=== PATIENT | male | born 1960 | race Two or more races ===

== ENCOUNTER 2025-04-27 15:11 | Inpatient (IN) | payer OTHER, MEDICAID ==
[~2025-04-27] VITALS: Ht 193 cm; Wt 115.0 kg
[2025-04-27] MEDS: SODIUM CHLORIDE 0.9% 1,000 ML IV ONE (17:07)
--- NOTE | 2025-04-27 17:39 | ED.PDOC ---
History of present illness HPI Comments Joel Newman JR is a 65-year-old male, with a past medical history of DM2, peripheral neuropathy, kidney stones, HTN, osteoarthritis, toes amputation and, hyperlipidemia. The patient came with history of 2 days of having elevated home glucose readings > 350. The patient reports that he has run of his diabetes medications (Insulin and metformin), for the last 3 months is has not take any medication due to a recent change of insurance. Today, the home glucose readings continue elevating, and he started presenting generalized myalgias, weakness and bilateral leg muscles cramps, this prompted his visit to the ED. Chief Complaint: Hyperglycemia Time Seen by MD: 15:21 Primary Care Provider: ALLEN History of present illness: Nurses Notes, Medications, Allergies Allergies: Coded Allergies: NO KNOWN ALLERGIES (Unverified , 04/27/25) Information Source: Patient, Spouse Mode of Arrival: Wheelchair Timing: Days, Months Duration: Since onset Past Medical History PAST MEDICAL HISTORY: DM, HTN, Kidney Stones Surgical History: Appendectomy Surgical History (Other): Left foot toe amputation. Family History Family History: Unknown Social History Smoker: Quit Greater Than 1 Year Alcohol: Denies ETOH Use Drugs: Denies Drug Use Lives In: Home Constitutional: reports: fatigue, malaise, weakness; denies: chills, diaphoresis, fever, sweats, others EENTM: denies: blurred vision, double vision, ear bleeding, ear discharge, ear drainage, ear pain, ear ringing, eye pain, eye redness, hearing loss, mouth pain, mouth swelling, nasal discharge, nose bleeding, nose congestion, nose pain, photophobia, tearing, throat pain, throat swelling, voice changes, others Respiratory: denies: cough, hemoptysis, orthopnea, SOB at rest, shortness of breath, SOB with excertion, stridor, wheezing, others Cardiovascular: denies: chest pain, dizzy spells, diaphoresis, Dyspnea on exertion, edema, irregular heart beat, left arm pain, lightheadedness, palpitations, PND, syncope, others Gastrointestinal: denies: abdomen distended, abdominal pain, blood streaked bowels, constipated, diarrhea, dysphagia, difficulty swallowing, hematemesis, melena, nausea, poor appetite, poor fluid intake, rectal bleeding, rectal pain, vomiting, others Genitourinary: denies: burning, dysuria, flank pain, frequency, hematuria, incontinence, penile discharge, penile sore, pain, testicle pain, testicle swelling, urgency, others Neurological: denies: dizziness, fainting, headache, left sided numbness, left sided weakness, numbness, paresthesia, pre-existing deficit, right sided numbness, right sided weakness, seizure, speech problems, tingling, tremors, weakness, others Musculoskeletal: reports: others (Generalized myalgias and muscle cramps); denies: back pain, gout, joint pain, joint swelling, muscle pain, muscle stiffness, neck pain Integumetry: denies: bruises, change in color, change in hair/nails, dryness, laceration, lesions, lumps, rash, wounds, others Allergic/Immunocompromised: denies: Difficulty Healing, Frequent Infections, Hives, Itching, others Hematologic/Lymphatic: denies: anemia, blood clots, easy bleeding, easy bruising, swollen glands, others Endocrine: denies: excessive hunger, excessive sweating, excessive thirst, excessive urination, flushing, intolerance to cold, intolerance to heat, unexplained weight gain, unexplained weight loss, others Psychiatric: denies: anxiety, bipolar disorder, depression, hopeless, panic disorder, schizophrenia, sleepless, suicidal, others Physical Exam General Appearance: Mild Distress HEENT: Normal ENT Inspection, Pharynx Normal, TMs Normal Neck: Full Range of Motion, Non-Tender, Normal, Normal Inspection Respiratory: Chest Non-Tender, Lungs Clear, No Accessory Muscle Use, No Respiratory Distress, Normal Breath Sounds Cardiovascular: No Edema, No JVD, No Murmur, No Gallop, Normal Peripheral Pulses, Regular Rate/Rhythm Breast Exam: Deferred Gastrointestinal: No Organomegaly, Non Tender, No Pulsatile Mass, Normal Bowel Sounds, Soft Genitalia: Deferred Pelvic: Deferred Rectal: Deferred Extremities: Other (Left toe amputation. ) Neurologic: Abnormal Gait (Due to generalized weakness), Alert (Alert, oriented x3) Cerebellar Function: Normal Reflexes: Normal Skin: Dry, Normal Color, Warm Lymphatic: No Adenopathy Was a procedure done? Was a procedure done?: No Differential Diagnosis (DM) Differential Diagnosis: DKA, Hyperglycemia Other Differential Diagnosis Uncontrolled hyperglycemia. X-Ray, Labs, Meds, VS Vital Signs Date Time Temp Pulse Resp B/P (MAP) Pulse Ox O2 Delivery O2 Flow Rate FiO2 04/27/25 17:25 83 18 145/113 (124) 99 04/27/25 15:14 98.6 111 22 146/70 99 98.6 Lab Test 04/27/25 17:05 Range/Units White Blood Count 18.3 H 4.4-10.8 10^3/uL Red Blood Count 5.36 4.5-5.90 10^6/uL Hemoglobin 16.1 13.5-17.5 g/dL Hematocrit 45.8 41.0-53.0 % Mean Corpuscular Volume 85.5 80.0-100.0 fL Mean Corpuscular Hemoglobin 30.0 28.0-32.0 pg Mean Corpuscular Hemoglobin Concent 35.1 32.0-36.0 g/dL Red Cell Distribution Width 12.6 11.8-14.3 % Platelet Count 201 140-450 10^3/uL Mean Platelet Volume 10.5 6.9-10.8 fL Neutrophils (%) (Auto) 37.0-80.0 % Lymphocytes (%) (Auto) 10.0-50.0 % Monocytes (%) (Auto) 0.0-12.0 % Basophils (%) (Auto) 0.0-2.0 % Neutrophils # (Auto) 1.6-8.6 10 ^3/uL Lymphocytes # (Auto) 0.4-5.4 10 ^3/uL Monocytes # (Auto) 0-1.3 10 ^3/uL Differential Total Cells Counted 100.0 100 Neutrophils % (Manual) 91 H 37.0-80.0 Band Neutrophils % (Manual) 0 Lymphocytes % (Manual) 6 L 10.0-50.0 Monocytes % (Manual) 3 0-12 Eosinophils % (Manual) 0 0-7 Basophils % (Manual) 0 0.0-2.0 Metamyelocytes % (manual) 0 Myelocytes % (Manual) 0 Promyelocytes % (Manual) 0 Blast Cells % (Manual) 0 Reactive Lymphocytes 0 Platelet Estimate Adequate Sodium Level 131 L 136-145 mmol/L Potassium Level 3.8 3.5-5.1 mmol/L Chloride Level 96 L 98-107 mmol/L Carbon Dioxide Level 24 20-31 mmol/L Anion Gap 11 5-15 Blood Urea Nitrogen 12 9-23 mg/dL Creatinine 0.99 0.700-1.30 mg/dL Glomerular Filtration Rate Calc 83 >90 mL/min BUN/Creatinine Ratio 12.1 10.0-20.0 Serum Glucose 272 H 74-106 mg/dL Calcium Level 9.4 8.7-10.4 mg/dL Total Bilirubin 0.9 0.2-1.0 mg/dL Aspartate Amino Transferase (AST) 28 13-40 U/L Alanine Aminotransferase (ALT) 22 7-40 U/L Alkaline Phosphatase 108 46-116 U/L Total Protein 7.9 5.7-8.2 g/dL Albumin 4.4 3.2-4.8 g/dL Current Medications Medications (Trade) Dose Ordered Sig/Avery Route Start Time Stop Time Status Last Admin Sodium Chloride 1,000 ml @ 1,000 mls/hr Q1H ONCE IV 04/27/25 16:15 04/27/25 17:14 DC 04/27/25 17:07 X-Ray, Labs, Meds, VS Comment The patient was re-evaluated. BP continue elevated. Labs showed: WBC 18.3, Glucose 272mg/dl Patient will be admitted for further assessment and management. Time of 1ST Reevaluation: 18:00 Reevaluation 1ST: Unchanged Patient Education/Counseling: Diagnosis, Treatment, Prognosis, Need For Follow Up Family Education/Counseling: Diagnosis, Treatment, Prognosis, Need For Follow Up SEPSIS Sepsis Screen Date sepsis recognized/suspect: Apr 27, 2025 Time Sepsis recognized/suspect: 1514 Recent Procedure: No On Antibiotic Therapy: No Respiratory Rate >20: No Heart Rate >90: Yes Temp<36 C (96.8 F) or >38.3 C: No SBP <90 or MAP <65 mmHG: No New Acute Mental Status Change: No Is the patient on CPAP, BIPAP,: No Physician Orders Urinalysis (04/27/25 16:06) Accucheck (04/27/25 16:06) Vital Signs Date Time Temp Pulse Resp B/P (MAP) Pulse Ox O2 Delivery O2 Flow Rate FiO2 04/27/25 17:25 83 18 145/113 (124) 99 04/27/25 15:14 98.6 111 22 146/70 99 98.6 Laboratory Tests Test 04/27/25 17:05 White Blood Count 18.3 10^3/uL (4.4-10.8) H Medications Medications Dose Ordered Sig/Avery Route Start Time Stop Time Status Last Admin Dose Admin Sodium Chloride 1,000 ml @ 1,000 mls/hr Q1H ONCE IV 04/27/25 16:15 04/27/25 17:14 DC 04/27/25 17:07 Departure 1 Departure Time of Disposition: 18:37 Impression: Primary Impression: Uncontrolled diabetes mellitus Disposition: ADMITTED INPATIENT Admit to: Med Surg Condition: Fair Comments Goals of care discussed with the patient > 35 min. Discussed plan of care with Dr. Sanchez Code status: Full code PCP: Anastacio Rodriguez Plan discussed with: Patient and his spouse, the patient agrees with the admission plan. Critical Care Note Critical Care Time?: No Stability Stability form required: No Heart Score Heart Score: Heart Score Response (Comments) Value History N/A 0 EKG N/A 0 Age N/A 0 Risk Factors N/A 0 Troponin N/A 0 Total 0 RISSA FLOREZ RESIDENT Apr 27, 2025 17:38
[2025-04-27 17:45] LABS: Hematocrit 45.8 % (41.0-53.0); Hemoglobin 16.1 g/dL (13.5-17.5); Mean Corpuscular Hemoglobin 30.0 pg (28.0-32.0); Mean Corpuscular Volume 85.5 fL (80.0-100.0)
[2025-04-27 17:58] LABS: Alanine Aminotransferase 22 U/L (7-40); Albumin 4.4 g/dL (3.2-4.8); Alkaline Phosphatase 108 U/L (46-116); Anion Gap 11 (5-15); BUN/Creatinine Ratio 12.1 (10.0-20.0); Blood Urea Nitrogen 12 mg/dL (9-23); Calcium 9.4 mg/dL (8.7-10.4); Carbon Dioxide 24 mmol/L (20-31); Potassium 3.8 mmol/L (3.5-5.1); Total Protein 7.9 g/dL (5.7-8.2)
[2025-04-27 17:59] LABS: Bilirubin, Total 0.9 mg/dL (0.2-1.0)
[2025-04-27 18:00] LABS: Chloride 96 mmol/L (98-107); Glucose 272 mg/dL (74-106); Sodium 131 mmol/L (136-145)
[2025-04-27 18:09] LABS: Total Cells Counted 100.0 (100)
[2025-04-27 20:25] LABS: Urine Protein, UAD Negative (Negative)
[2025-04-27] MEDS ORDERED: DEXTROSE (50%) 50ML SYRG IV PRN (21:00)
[2025-04-27] MEDS ORDERED: ONDANSETRON HCL 4 MG/2 ML VIAL IV PRN (21:00)
[2025-04-27] MEDS ORDERED: ACETAMINOPHEN 325 MG TAB PO PRN (21:00)
[2025-04-27] MEDS: ONDANSETRON HCL 4 MG/2 ML VIAL IV ONE (21:30)
[2025-04-27] MEDS: HYDROcodone-ACET 5/325MG TAB PO ONE (21:31)
[2025-04-27 21:47] VITALS: PULSE 89; RESP 20; O2SAT 96
[2025-04-27 23:33] VITALS: BP 112/86; PULSE 83; RESP 16; TEMP 97.6; O2SAT 99
--- NOTE | 2025-04-27 23:38 | DVHHP2 ---
History of Present Illness Reason for Visit: Hyperglycemia History of Present Illness 65-year-old male presents for evaluation of hyperglycemia. Patient reports a two day history of elevated blood sugars in the 300s. He reports his baseline blood sugars are no greater than 150. He reports being compliant with his medications. Denies fever or chills. Does report a nonproductive cough occasionally over the past three days. Denies chest pain. No abdominal pain or nausea. Past Medical History Diabetes mellitus and hypertension Past Surgical History Appendectomy, toe amputation Family History Noncontributory Smoke: Quit ALCOHOL: none Drugs: None Lives: with Family Review of Systems Review of Systems Review of systems are currently negative otherwise addressed in HPI. Allergies: Coded Allergies: NO KNOWN ALLERGIES (Unverified , 04/27/25) Medications Current Medications Medications Dose Ordered Sig/Avery Route Start Time Stop Time Status Last Admin Dose Admin Ceftriaxone Sodium 50 ml @ 100 mls/hr DAILY@09 IV 04/28/25 09:00 Diagnostic Test (Pha) 1 strip Q6HR 04/28/25 00:00 Insulin Human Regular Q6HR SC 04/28/25 00:00 Dextrose 50 ml UD PRN IV 04/27/25 21:00 Ondansetron HCl 4 mg Q4HP PRN IV 04/27/25 21:00 Acetaminophen 650 mg Q6HP PRN PO 04/27/25 21:00 Exam Vital Signs Vital Signs Date Time Temp Pulse Resp B/P (MAP) Pulse Ox O2 Delivery O2 Flow Rate FiO2 04/27/25 21:47 89 20 96 Room Air* 0 21 04/27/25 20:19 98.8 113/59 (77) 98.8 Exam Gen: 65-year-old male in mild Skin: Warm, dry, normal color and texture, no rash. HEENT: Normocephalic atraumatic, mucous membranes moist and pink. Neck: Cervical and supraclavicular nodes normal without enlargement, trachea is midline, thyroid gland is normal without masses. Pulmonary: Clear to auscultation and percussion bilaterally. Cardiac: Regular rate and rhythm. No murmur Abdomen: Soft, nontender, nondistended, bowel sounds present all 4 quadrants, no guarding, no rigidity, no organomegaly. Extremities: No cyanosis, clubbing, no edema Neuro: Cranial nerves II through XII grossly intact, normal affect and speech, no focal motor deficits. Labs/Xrays Labs Test 04/27/25 21:10 04/27/25 19:50 04/27/25 17:08 04/27/25 17:05 Range/Units Troponin I High Sensitivity < 3 L </=54 ng/L Urine Color Light-yellow Yellow Urine Clarity Clear Clear Urine pH 7.0 5.0-9.0 Urine Specific [place] 1.007 1.001-1.035 Urine Protein Negative Negative Urine Ketones Trace Negative Urine Blood Negative Negative /uL Urine Nitrite Negative Negative Urine Bilirubin Negative Negative Urine Urobilinogen Normal Negative mg/dL Urine Leukocyte Esterase Negative Negative /uL Urine RBC None seen 0 - 3 /hpf Urine Microscopic WBC 0-3 /HPF Urine Squamous Epithelial Cells None seen <5 /hpf Urine Bacteria None seen None Seen /hpf Urine Glucose 2+ H Normal mg/dL Hemoglobin A1c 12.1 H <5.7 % A1C White Blood Count 18.3 H 4.4-10.8 10^3/uL Red Blood Count 5.36 4.5-5.90 10^6/uL Hemoglobin 16.1 13.5-17.5 g/dL Hematocrit 45.8 41.0-53.0 % Mean Corpuscular Volume 85.5 80.0-100.0 fL Mean Corpuscular Hemoglobin 30.0 28.0-32.0 pg Mean Corpuscular Hemoglobin Concent 35.1 32.0-36.0 g/dL Red Cell Distribution Width 12.6 11.8-14.3 % Platelet Count 201 140-450 10^3/uL Mean Platelet Volume 10.5 6.9-10.8 fL Neutrophils (%) (Auto) 37.0-80.0 % Lymphocytes (%) (Auto) 10.0-50.0 % Monocytes (%) (Auto) 0.0-12.0 % Basophils (%) (Auto) 0.0-2.0 % Neutrophils # (Auto) 1.6-8.6 10 ^3/uL Lymphocytes # (Auto) 0.4-5.4 10 ^3/uL Monocytes # (Auto) 0-1.3 10 ^3/uL Differential Total Cells Counted 100.0 100 Neutrophils % (Manual) 91 H 37.0-80.0 Band Neutrophils % (Manual) 0 Lymphocytes % (Manual) 6 L 10.0-50.0 Monocytes % (Manual) 3 0-12 Eosinophils % (Manual) 0 0-7 Basophils % (Manual) 0 0.0-2.0 Metamyelocytes % (manual) 0 Myelocytes % (Manual) 0 Promyelocytes % (Manual) 0 Blast Cells % (Manual) 0 Reactive Lymphocytes 0 Platelet Estimate Adequate Sodium Level 131 L 136-145 mmol/L Potassium Level 3.8 3.5-5.1 mmol/L Chloride Level 96 L 98-107 mmol/L Carbon Dioxide Level 24 20-31 mmol/L Anion Gap 11 5-15 Blood Urea Nitrogen 12 9-23 mg/dL Creatinine 0.99 0.700-1.30 mg/dL Glomerular Filtration Rate Calc 83 >90 mL/min BUN/Creatinine Ratio 12.1 10.0-20.0 Serum Glucose 272 H 74-106 mg/dL Calcium Level 9.4 8.7-10.4 mg/dL Total Bilirubin 0.9 0.2-1.0 mg/dL Aspartate Amino Transferase (AST) 28 13-40 U/L Alanine Aminotransferase (ALT) 22 7-40 U/L Alkaline Phosphatase 108 46-116 U/L Total Protein 7.9 5.7-8.2 g/dL Albumin 4.4 3.2-4.8 g/dL SEPSIS Sepsis Screen Date sepsis recognized/suspect: Apr 27, 2025 Time Sepsis recognized/suspect: 1514 Recent Procedure: No On Antibiotic Therapy: No Respiratory Rate >20: No Heart Rate >90: Yes Temp<36 C (96.8 F) or >38.3 C: No SBP <90 or MAP <65 mmHG: No New Acute Mental Status Change: No Is the patient on CPAP, BIPAP,: No Physician Orders Accucheck (04/27/25 16:06) Electrocardigram (04/27/25 19:05) Ceftriaxone 1gm/50ml (Rocephin) (04/28/25 09:00) Blood Culture (04/27/25 20:48) Chest Xray 1 View (04/27/25 20:48) Basic Metabolic Panel (04/28/25 04:00) Glucose Blood (Accu-Chek Comfort Curve T (04/28/25 00:00) Insulin R (Human) (Insulin R) (04/28/25 00:00) Dextrose 50% Syringe (04/27/25 21:00) Ondansetron Hcl (Zofran) (04/27/25 21:00) Complete Blood Count (04/28/25 04:00) Cardiac Diet-2gna,Lofat,Lochol (04/28/25 Breakfast) Condition: Stable (04/27/25 20:48) Acetaminophen Tablet (Tylenol Tablet) (04/27/25 21:00) Bedrest With Bathroom Privileg (04/27/25 20:48) Admit (04/27/25 21:23) Vital Signs Date Time Temp Pulse Resp B/P (MAP) Pulse Ox O2 Delivery O2 Flow Rate FiO2 04/27/25 21:47 89 20 96 Room Air* 0 21 04/27/25 20:41 81 04/27/25 20:19 98.8 90 19 113/59 (77) 100 98.8 04/27/25 18:45 89 04/27/25 17:25 83 18 145/113 (124) 99 Laboratory Tests Test 04/27/25 17:05 White Blood Count 18.3 10^3/uL (4.4-10.8) H Medications Medications Dose Ordered Sig/Avery Route Start Time Stop Time Status Last Admin Dose Admin Acetaminophen/ Hydrocodone Bitart 1 tab ONCE ONCE PO 04/27/25 21:15 04/27/25 21:16 DC 04/27/25 21:31 1 TAB Ceftriaxone Sodium 50 ml @ 100 mls/hr ONCE ONCE IV 04/27/25 19:30 04/27/25 19:59 DC 04/27/25 20:30 100 MLS/HR Ondansetron HCl 4 mg ONCE ONCE IV 04/27/25 21:15 04/27/25 21:16 DC 04/27/25 21:30 4 MG Sodium Chloride 1,000 ml @ 1,000 mls/hr Q1H ONCE IV 04/27/25 16:15 04/27/25 17:14 DC 04/27/25 17:07 1,000 MLS/HR Assessment/Plan Assessment/Plan Assessment Uncontrolled diabetes mellitus Leukocytosis Hypertension Plan Ad[place] the patient [place] [facility] [place] Q.4 hour Accu-Cheks with mild coverage Chest x-ray pending Blood cultures pending Start Rocephin Continue treatment per orders. Plan discussed with: Patient My Orders Orders - OMER REIS Procedure Category Date Status Time Ceftriaxone 1gm/50ml PHA 04/28/25 In Process (Rocephin) 09:00 Blood Culture RANDY 04/27/25 In Process 20:48 Chest Xray 1 View XY 04/27/25 Taken 20:48 Basic Metabolic Panel LAB 04/28/25 Verified 04:00 Glucose Blood PHA 04/28/25 In Process (Accu-Chek Comfort 00:00 Insulin R (Human) PHA 04/28/25 In Process (Insulin R) 00:00 Dextrose 50% Syringe PHA 04/27/25 In Process 21:00 Ondansetron Hcl PHA 04/27/25 In Process (Zofran) 21:00 Complete Blood Count LAB 04/28/25 Verified 04:00 Cardiac DIET 04/28/25 Transmitted Diet-2gna,Lofat,Lochol Breakfast Condition: Stable SHREI 04/27/25 In Process 20:48 Acetaminophen Tablet PHA 04/27/25 In Process (Tylenol Tablet) 21:00 Bedrest With Bathroom SHERI 04/27/25 In Process Privileg 20:48 Admit ADMIT 04/27/25 Transmitted 21:23 Date of Service: Apr 27, 2025 Billing Provider: OMER REIS Common Visit Codes: [id number] INP/OBS CARE (MOD) OMER REIS Apr 27, 2025 23:38
[2025-04-28] VITALS (8 sets, daily range): BP systolic 107–121; BP diastolic 61–86; PULSE 60–87; RESP 16–20; TEMP 97.6–99.5; O2SAT 93–99
[2025-04-28] MEDS: HYDROcodone-ACET 5/325MG TAB PO PRN (00:53)
[2025-04-28 06:29] LABS: Hematocrit 41.0 % (41.0-53.0); Hemoglobin 14.5 g/dL (13.5-17.5); Mean Corpuscular Hemoglobin 29.7 pg (28.0-32.0); Mean Corpuscular Volume 84.3 fL (80.0-100.0); Nucleated Red Blood Cells % 0.0 %
[2025-04-28 06:37] LABS: Potassium 3.7 mmol/L (3.5-5.1)
[2025-04-28 06:38] LABS: Anion Gap 11 (5-15); Calcium 8.8 mg/dL (8.7-10.4); Carbon Dioxide 25 mmol/L (20-31)
[2025-04-28 06:43] LABS: BUN/Creatinine Ratio 13.5 (10.0-20.0); Blood Urea Nitrogen 13 mg/dL (9-23)
[2025-04-28 06:50] LABS: Chloride 97 mmol/L (98-107); Glucose 249 mg/dL (74-106); Sodium 133 mmol/L (136-145)
[2025-04-28] MEDS: BENAZEPRIL HCL 10 MG TAB PO SCH (09:34)
--- NOTE | 2025-04-28 12:53 | DVHPN2 ---
Reviewed: Care Plan, H&P, Labs, Medications, Previous Orders, Radiology Changes from previous H/P or p: No Changes Objective Vitals Vital Signs Date Time Temp Pulse Resp B/P (MAP) Pulse Ox O2 Delivery O2 Flow Rate FiO2 04/28/25 09:34 107/71 04/28/25 09:00 99.5 87 20 93 99.5 04/28/25 08:00 Room Air* 0 21 Intake/Output Intake and Output 04/28/25 07:00 Intake Total 1300 ml Balance 1300 ml Intake Oral 300 ml IV Total 1000 ml # Bowel Movements 2 Medications Current Medications Medications Dose Ordered Sig/Avery Route Start Time Stop Time Status Last Admin Dose Admin Ceftriaxone Sodium 50 ml @ 100 mls/hr DAILY@09 IV 04/28/25 09:00 04/28/25 09:37 100 MLS/HR Diagnostic Test (Pha) 1 strip Q6HR 04/28/25 00:00 04/28/25 11:19 1 STRIP Insulin Human Regular Q6HR SC 04/28/25 00:00 04/28/25 11:22 6 UNITS Dextrose 50 ml UD PRN IV 04/27/25 21:00 Ondansetron HCl 4 mg Q4HP PRN IV 04/27/25 21:00 Acetaminophen 650 mg Q6HP PRN PO 04/27/25 21:00 Atorvastatin Calcium 20 mg HS PO 04/28/25 22:00 Benazepril HCl 10 mg DAILY PO 04/28/25 10:00 04/28/25 09:34 10 MG Acetaminophen/ Hydrocodone Bitart 1 tab Q4HPRN PRN PO 04/28/25 00:30 04/28/25 00:53 1 TAB Laboratory Results Laboratory Tests 04/28/25 05:14 Chemistry Test 04/27/25 17:05 04/28/25 05:14 Albumin 4.4 g/dL (3.2-4.8) Calcium Level 9.4 mg/dL (8.7-10.4) 8.8 mg/dL (8.7-10.4) Total Protein 7.9 g/dL (5.7-8.2) LFT Test 04/27/25 17:05 Alanine Aminotransferase (ALT) 22 U/L (7-40) Alkaline Phosphatase 108 U/L (46-116) Aspartate Amino Transferase (AST) 28 U/L (13-40) Total Bilirubin 0.9 mg/dL (0.2-1.0) HgA1c, TSH Test 04/27/25 17:08 Hemoglobin A1c 12.1 % A1C (<5.7) H Urinalysis Test 04/27/25 19:50 Urine Color Light-yellow (Yellow) Urine Clarity Clear (Clear) Urine pH 7.0 (5.0-9.0) Urine Specific [place] 1.007 (1.001-1.035) Urine Protein Negative (Negative) Urine Ketones Trace (Negative) Urine Blood Negative /uL (Negative) Urine Nitrite Negative (Negative) Urine Bilirubin Negative (Negative) Urine Urobilinogen Normal mg/dL (Negative) Urine Leukocyte Esterase Negative /uL (Negative) Urine RBC None seen /hpf (0 - 3) Urine Microscopic WBC /HPF (0-3) Urine Squamous Epithelial Cells None seen /hpf (<5) Urine Bacteria None seen /hpf (None Seen) Urine Glucose 2+ mg/dL (Normal) H Labs and/or images reviewed: Labs reviewed by me, Image(s) reviewed by me Assessment/Plan Assessment/Plan Uncontrolled diabetes blood sugars in the range of 300 A1c 12.1: Insulin aggressive sliding scale Leukocytosis 00532 unknown etiology: Rocephin, chest x-ray negative urinalysis negative for infection Hypertension Moderate malnutrition Time spent 45 minutes Plan discussed with: Patient Date of Service: Apr 28, 2025 Billing Provider: KATHY YUAN MD Common Visit Codes: [id number] INP/OBS CARE(HIGH) KATHY YUAN MD Apr 28, 2025 12:53
[2025-04-28] MEDS ORDERED: DEXTROSE (50%) 50ML SYRG IV PRN (13:15)
[2025-04-28] MEDS ORDERED: OMEP-434 PO (15:44)
[2025-04-28] MEDS ORDERED: LOVA20TA4 PO (15:44)
[2025-04-28] MEDS ORDERED: METF-370 PO (15:44)
[2025-04-28] MEDS ORDERED: CYCL-839 PO (15:44)
[2025-04-28] MEDS ORDERED: PIO30T PO (15:44)
[2025-04-28] MEDS ORDERED: FLUT1INH30 IN (15:44)
[2025-04-28] MEDS: ACCU-CHEK COMFORT CURVE STRIP VI SCH ×2 (17:18)
[2025-04-28] MEDS: InsuLIN REG 1unit/0.01ml Soln (100units/ml) SC SCH ×2 (17:19)
[2025-04-28] MEDS: ATORVASTATIN 20 MG TAB PO SCH (21:46)
[2025-04-29] VITALS (7 sets, daily range): BP systolic 111–129; BP diastolic 65–78; PULSE 70–85; RESP 18–20; TEMP 97.4–99.4; O2SAT 94–99
--- NOTE | 2025-04-29 10:01 | DVHPN2 ---
Reviewed: Care Plan, H&P, Labs, Medications, Previous Orders, Radiology Changes from previous H/P or p: No Changes Objective Vitals Vital Signs Date Time Temp Pulse Resp B/P (MAP) Pulse Ox O2 Delivery O2 Flow Rate FiO2 04/29/25 09:26 129/69 04/29/25 05:00 97.4 77 20 99 97.4 04/28/25 20:00 Room Air* 0 21 Intake/Output Intake and Output 04/29/25 07:00 Intake Total 3853 ml Output Total 1000 ml Balance 2853 ml Intake Oral 3803 ml IV Total 50 ml Output Urine Total 1000 ml # Voids 5 # Bowel Movements 2 Medications Current Medications Medications Dose Ordered Sig/Avery Route Start Time Stop Time Status Last Admin Dose Admin Ceftriaxone Sodium 50 ml @ 100 mls/hr DAILY@09 IV 04/28/25 09:00 04/29/25 08:23 100 MLS/HR Ondansetron HCl 4 mg Q4HP PRN IV 04/27/25 21:00 Acetaminophen 650 mg Q6HP PRN PO 04/27/25 21:00 Atorvastatin Calcium 20 mg HS PO 04/28/25 22:00 04/28/25 21:46 20 MG Benazepril HCl 10 mg DAILY PO 04/28/25 10:00 04/29/25 09:26 10 MG Acetaminophen/ Hydrocodone Bitart 1 tab Q4HPRN PRN PO 04/28/25 00:30 04/28/25 00:53 1 TAB Diagnostic Test (Pha) 1 strip Q6HR 04/28/25 18:00 04/29/25 05:32 1 STRIP Insulin Human Regular Q6HR SC 04/28/25 18:00 04/29/25 05:32 8 UNITS Dextrose 50 ml UD PRN IV 04/28/25 13:15 Laboratory Results Laboratory Tests 04/28/25 05:14 Urinalysis Test 04/27/25 19:50 Urine Color Light-yellow (Yellow) Urine Clarity Clear (Clear) Urine pH 7.0 (5.0-9.0) Urine Specific [place] 1.007 (1.001-1.035) Urine Protein Negative (Negative) Urine Ketones Trace (Negative) Urine Blood Negative /uL (Negative) Urine Nitrite Negative (Negative) Urine Bilirubin Negative (Negative) Urine Urobilinogen Normal mg/dL (Negative) Urine Leukocyte Esterase Negative /uL (Negative) Urine RBC None seen /hpf (0 - 3) Urine Microscopic WBC /HPF (0-3) Urine Squamous Epithelial Cells None seen /hpf (<5) Urine Bacteria None seen /hpf (None Seen) Urine Glucose 2+ mg/dL (Normal) H Microbiology Microbiology Date/Time Source Procedure Growth Status 04/27/25 21:10 Blood Blood Culture - Preliminary NO GROWTH AFTER 24 HOURS OF INCUBATION. Resulted Labs and/or images reviewed: Labs reviewed by me, Image(s) reviewed by me Assessment/Plan Assessment/Plan Uncontrolled diabetes blood sugars in the range of 300 A1c 12.1: Insulin aggressive sliding scale Leukocytosis 13429 unknown etiology: Rocephin, chest x-ray negative urinalysis negative for infection Hypertension Moderate malnutrition Time spent 45 minutes Patient lives with his Plan discussed with: Patient My Orders Orders - KATHY YUAN MD Procedure Category Date Status Time Glucose Blood PHA 04/28/25 In Process (Accu-Chek Comfort 18:00 Insulin R (Human) PHA 04/28/25 In Process (Insulin R) 18:00 Dextrose 50% Syringe PHA 04/28/25 In Process 13:15 Communication Order ORDERS 04/28/25 Transmitted 13:12 Date of Service: Apr 29, 2025 Billing Provider: KATHY YUAN MD Common Visit Codes: [id number] INP/OBS CARE(HIGH) KATHY YUAN MD Apr 29, 2025 10:01
--- NOTE | 2025-04-29 11:30 | DVH ---
CHEST RADIOGRAPH Indication: sob Technique: Single frontal view of the chest was obtained COMPARISON: None FINDINGS: Lines and Tubes: None Lungs: Congestion Pleura: No effusion.No pneumothorax. Cardiomediastinal contours: Unremarkable Bones: Unremarkable IMPRESSION: Pulmonary vascular congestion.
--- NOTE | 2025-04-29 11:31 | DVH ---
CT pelvis contrast INDICATION: Sepsis, leukocytosis TECHNIQUE: Serial axial images were performed through the abdomen and pelvis and then reformatted in the sagittal and coronal plane. All CT scans at this medical facility are performed using dose modula tion techniques as appropriate to a performed exam including the following: Automated exposure contro l was utilized; adjustment of the MA and/or KvP according to patient size; and use of iterative recon struction technique. FINDINGS: Liver and spleen are normal in size without focal mass. No renal masses, stones or hydronep hrosis. No masses or enlargement of the adrenal glands or pancreas. No biliary dilatation. No gallsto van. No distention of bowel loops to suggest mechanical obstruction of bowel. The appendix is normal in appearance. No free fluid. Within the pelvis, bladder is smooth walled without stones. No abnormal masses or fluid collections. IMPRESSION: 1. Study limited by lack of IV contrast. There is no obvious active in infectious or inflammatory pro cess involving abdomen or pelvis Computed Tomographic Radiation Dosimetry Report: Total CTDI vol = 22.8mGy Total DLP = 3.92mGy-cm Low dose protocols were performed.
[2025-04-29] MEDS ORDERED: HYDROcodone-ACET 5/325MG TAB PO SCH (12:00)
[2025-04-30 01:00] VITALS: BP 129/72; PULSE 70; RESP 18; TEMP 98; O2SAT 99
[2025-04-30 05:00] VITALS: BP 128/80; PULSE 72; RESP 18; TEMP 97.9; O2SAT 96
[2025-04-30 07:08] LABS: Alanine Aminotransferase 18 U/L (7-40); Alkaline Phosphatase 85 U/L (46-116); Anion Gap 8 (5-15); BUN/Creatinine Ratio 13.8 (10.0-20.0); Blood Urea Nitrogen 12 mg/dL (9-23); Calcium 9.3 mg/dL (8.7-10.4); Carbon Dioxide 27 mmol/L (20-31); Chloride 101 mmol/L (98-107); Potassium 4.1 mmol/L (3.5-5.1); Sodium 136 mmol/L (136-145); Total Protein 7.3 g/dL (5.7-8.2)
[2025-04-30 07:09] LABS: Albumin 4.0 g/dL (3.2-4.8); Glucose 165 mg/dL (74-106)
[2025-04-30 07:10] LABS: Bilirubin, Total 0.8 mg/dL (0.2-1.0)
[2025-04-30 07:29] LABS: Hematocrit 42.5 % (41.0-53.0); Hemoglobin 15.5 g/dL (13.5-17.5); Mean Corpuscular Hemoglobin 30.2 pg (28.0-32.0); Mean Corpuscular Volume 83.0 fL (80.0-100.0); Nucleated Red Blood Cells % 0.2 %
[2025-04-30 09:00] VITALS: BP 115/67; PULSE 64; RESP 17; TEMP 97.6; O2SAT 96
--- NOTE | 2025-04-30 12:46 | DVHPN2 ---
Reviewed: Care Plan, H&P, Labs, Medications, Previous Orders, Radiology Changes from previous H/P or p: No Changes Objective Vitals Vital Signs Date Time Temp Pulse Resp B/P (MAP) Pulse Ox O2 Delivery O2 Flow Rate FiO2 04/30/25 09:08 115/67 04/30/25 09:00 97.6 64 17 96 97.6 04/30/25 08:00 Room Air* 0 21 Intake/Output Intake and Output 04/30/25 07:00 Intake Total 1665 ml Output Total 601 ml Balance 1064 ml Intake Oral 1615 ml IV Total 50 ml Output Urine Total 601 ml Medications Current Medications Medications Dose Ordered Sig/Avery Route Start Time Stop Time Status Last Admin Dose Admin Ceftriaxone Sodium 50 ml @ 100 mls/hr DAILY@09 IV 04/28/25 09:00 04/30/25 09:07 100 MLS/HR Ondansetron HCl 4 mg Q4HP PRN IV 04/27/25 21:00 Acetaminophen 650 mg Q6HP PRN PO 04/27/25 21:00 Atorvastatin Calcium 20 mg HS PO 04/28/25 22:00 04/29/25 21:34 20 MG Benazepril HCl 10 mg DAILY PO 04/28/25 10:00 04/30/25 09:08 10 MG Diagnostic Test (Pha) 1 strip Q6HR 04/28/25 18:00 04/30/25 12:14 1 STRIP Insulin Human Regular Q6HR SC 04/28/25 18:00 04/30/25 12:14 8 UNITS Dextrose 50 ml UD PRN IV 04/28/25 13:15 Acetaminophen/ Hydrocodone Bitart 1 tab Q6HPRN PRN PO 04/29/25 18:00 Laboratory Results Laboratory Tests 04/30/25 06:20 Chemistry Test 04/30/25 06:20 Albumin 4.0 g/dL (3.2-4.8) Calcium Level 9.3 mg/dL (8.7-10.4) Total Protein 7.3 g/dL (5.7-8.2) LFT Test 04/30/25 06:20 Alanine Aminotransferase (ALT) 18 U/L (7-40) Alkaline Phosphatase 85 U/L (46-116) Aspartate Amino Transferase (AST) 41 U/L (13-40) H Total Bilirubin 0.8 mg/dL (0.2-1.0) Urinalysis Test 04/27/25 19:50 Urine Color Light-yellow (Yellow) Urine Clarity Clear (Clear) Urine pH 7.0 (5.0-9.0) Urine Specific [place] 1.007 (1.001-1.035) Urine Protein Negative (Negative) Urine Ketones Trace (Negative) Urine Blood Negative /uL (Negative) Urine Nitrite Negative (Negative) Urine Bilirubin Negative (Negative) Urine Urobilinogen Normal mg/dL (Negative) Urine Leukocyte Esterase Negative /uL (Negative) Urine RBC None seen /hpf (0 - 3) Urine Microscopic WBC /HPF (0-3) Urine Squamous Epithelial Cells None seen /hpf (<5) Urine Bacteria None seen /hpf (None Seen) Urine Glucose 2+ mg/dL (Normal) H Microbiology Microbiology Date/Time Source Procedure Growth Status 04/27/25 21:10 Blood Blood Culture - Preliminary NO GROWTH AFTER 48 HOURS OF INCUBATION. Resulted Labs and/or images reviewed: Labs reviewed by me, Image(s) reviewed by me Assessment/Plan Assessment/Plan Uncontrolled diabetes blood sugars in the range of 300 A1c 12.1: Insulin aggressive sliding scale Leukocytosis [id number] unknown etiology: Rocephin, chest x-ray negative urinalysis negative for infection Hypertension Moderate malnutrition Time spent 45 minutes Patient lives with his Plan discussed with: Patient Date of Service: Apr 30, 2025 Billing Provider: KATHY YUAN MD Common Visit Codes: [id number] INP/OBS CARE(HIGH) KATHY YUAN MD Apr 30, 2025 12:46
[2025-04-30 13:00] VITALS: BP 130/72; PULSE 68; RESP 19; TEMP 98.1; O2SAT 99
[2025-04-30] MEDS ORDERED: BENA10TA90 PO (13:20)
[2025-04-30] MEDS ORDERED: INSU1INJ3 SC (13:20)
[2025-04-30 17:00] VITALS: BP 127/75; PULSE 70; RESP 19; TEMP 98.1; O2SAT 97
[2025-04-30] MEDS: HYDROcodone-ACET 5/325MG TAB PO PRN (19:43)
[2025-04-30 21:00] VITALS: BP 121/70; PULSE 80; RESP 18; TEMP 98.4; O2SAT 100
[2025-05-01 01:00] VITALS: BP 126/74; PULSE 84; RESP 18; TEMP 98; O2SAT 96
[2025-05-01 05:00] VITALS: BP 130/79; PULSE 82; RESP 18; TEMP 98.2; O2SAT 96
--- NOTE | 2025-05-01 06:14 | ECG ---
[facility] Test Date: 2025-04-27 Test Time: 18:42:57 Pat Name: DAVE PACKER Department: Room: 0297 Gender: M [employer]: NAHOMI : 1960 Requested By: RISSA FLOREZ Order Number: [id number] Reading MD: Measurements Intervals [place] Rate: 89 P: -68 MS: 116 QRS: 93 QRSD: 93 T: 66 QT: 370 QTc: 451 Interpretive Statements Sinus or ectopic atrial rhythm Borderline short MS interval Right axis deviation Please click the below link to view image of tracing.
--- NOTE | 2025-05-01 12:05 | DVHPN2 ---
Reviewed: Care Plan, H&P, Labs, Medications, Previous Orders, Radiology Changes from previous H/P or p: No Changes Objective Vitals Vital Signs Date Time Temp Pulse Resp B/P (MAP) Pulse Ox O2 Delivery O2 Flow Rate FiO2 05/01/25 09:05 136/77 05/01/25 08:00 Room Air* 0 21 05/01/25 05:00 98.2 82 18 96 98.2 Intake/Output Intake and Output 05/01/25 07:00 Intake Total 950 ml Balance 950 ml Intake Oral 900 ml IV Total 50 ml # Voids 5 # Bowel Movements 1 Medications Current Medications Medications Dose Ordered Sig/Avery Route Start Time Stop Time Status Last Admin Dose Admin Ceftriaxone Sodium 50 ml @ 100 mls/hr DAILY@09 IV 04/28/25 09:00 05/01/25 08:12 100 MLS/HR Ondansetron HCl 4 mg Q4HP PRN IV 04/27/25 21:00 Acetaminophen 650 mg Q6HP PRN PO 04/27/25 21:00 Atorvastatin Calcium 20 mg HS PO 04/28/25 22:00 04/30/25 22:15 20 MG Benazepril HCl 10 mg DAILY PO 04/28/25 10:00 05/01/25 09:05 10 MG Diagnostic Test (Pha) 1 strip Q6HR 04/28/25 18:00 05/01/25 11:30 1 STRIP Insulin Human Regular Q6HR SC 04/28/25 18:00 05/01/25 11:36 8 UNITS Dextrose 50 ml UD PRN IV 04/28/25 13:15 Acetaminophen/ Hydrocodone Bitart 1 tab Q6HPRN PRN PO 04/29/25 18:00 04/30/25 19:43 1 TAB Laboratory Results Laboratory Tests 04/30/25 06:20 Urinalysis Test 04/27/25 19:50 Urine Color Light-yellow (Yellow) Urine Clarity Clear (Clear) Urine pH 7.0 (5.0-9.0) Urine Specific [place] 1.007 (1.001-1.035) Urine Protein Negative (Negative) Urine Ketones Trace (Negative) Urine Blood Negative /uL (Negative) Urine Nitrite Negative (Negative) Urine Bilirubin Negative (Negative) Urine Urobilinogen Normal mg/dL (Negative) Urine Leukocyte Esterase Negative /uL (Negative) Urine RBC None seen /hpf (0 - 3) Urine Microscopic WBC /HPF (0-3) Urine Squamous Epithelial Cells None seen /hpf (<5) Urine Bacteria None seen /hpf (None Seen) Urine Glucose 2+ mg/dL (Normal) H Microbiology Microbiology Date/Time Source Procedure Growth Status 04/27/25 21:10 Blood Blood Culture - Preliminary NO GROWTH AFTER 72 HOURS OF INCUBATION. Resulted Labs and/or images reviewed: Labs reviewed by me, Image(s) reviewed by me Assessment/Plan Assessment/Plan Uncontrolled diabetes blood sugars in the range of 300 A1c 12.1: Insulin aggressive sliding scale Leukocytosis [id number] unknown etiology: Rocephin, chest x-ray negative urinalysis negative for infection CT abdomen pelvis without contrast negative Hypertension Moderate malnutrition Time spent 45 minutes Patient lives with his Margot who is at bedside Plan discussed with: Patient Date of Service: May 01, 2025 Billing Provider: KATHY YUAN MD Common Visit Codes: [id number] INP/OBS CARE(HIGH) KATHY YUAN MD May 01, 2025 12:05
[2025-05-01] MEDS ORDERED: METF-929 PO (12:10)
[2025-05-01] MEDS ORDERED: CEPH500C PO (12:10)
--- NOTE | 2025-05-01 12:11 | DVHPN2 ---
Reviewed: Care Plan, H&P, Labs, Medications, Previous Orders, Radiology Changes from previous H/P or p: No Changes Objective Vitals Vital Signs Date Time Temp Pulse Resp B/P (MAP) Pulse Ox O2 Delivery O2 Flow Rate FiO2 05/01/25 09:05 136/77 05/01/25 08:00 Room Air* 0 21 05/01/25 05:00 98.2 82 18 96 98.2 Intake/Output Intake and Output 05/01/25 07:00 Intake Total 950 ml Balance 950 ml Intake Oral 900 ml IV Total 50 ml # Voids 5 # Bowel Movements 1 Medications Current Medications Medications Dose Ordered Sig/Avery Route Start Time Stop Time Status Last Admin Dose Admin Ceftriaxone Sodium 50 ml @ 100 mls/hr DAILY@09 IV 04/28/25 09:00 05/01/25 08:12 100 MLS/HR Ondansetron HCl 4 mg Q4HP PRN IV 04/27/25 21:00 Acetaminophen 650 mg Q6HP PRN PO 04/27/25 21:00 Atorvastatin Calcium 20 mg HS PO 04/28/25 22:00 04/30/25 22:15 20 MG Benazepril HCl 10 mg DAILY PO 04/28/25 10:00 05/01/25 09:05 10 MG Diagnostic Test (Pha) 1 strip Q6HR 04/28/25 18:00 05/01/25 11:30 1 STRIP Insulin Human Regular Q6HR SC 04/28/25 18:00 05/01/25 11:36 8 UNITS Dextrose 50 ml UD PRN IV 04/28/25 13:15 Acetaminophen/ Hydrocodone Bitart 1 tab Q6HPRN PRN PO 04/29/25 18:00 04/30/25 19:43 1 TAB Laboratory Results Laboratory Tests 04/30/25 06:20 Urinalysis Test 04/27/25 19:50 Urine Color Light-yellow (Yellow) Urine Clarity Clear (Clear) Urine pH 7.0 (5.0-9.0) Urine Specific [place] 1.007 (1.001-1.035) Urine Protein Negative (Negative) Urine Ketones Trace (Negative) Urine Blood Negative /uL (Negative) Urine Nitrite Negative (Negative) Urine Bilirubin Negative (Negative) Urine Urobilinogen Normal mg/dL (Negative) Urine Leukocyte Esterase Negative /uL (Negative) Urine RBC None seen /hpf (0 - 3) Urine Microscopic WBC /HPF (0-3) Urine Squamous Epithelial Cells None seen /hpf (<5) Urine Bacteria None seen /hpf (None Seen) Urine Glucose 2+ mg/dL (Normal) H Microbiology Microbiology Date/Time Source Procedure Growth Status 04/27/25 21:10 Blood Blood Culture - Preliminary NO GROWTH AFTER 72 HOURS OF INCUBATION. Resulted Labs and/or images reviewed: Labs reviewed by me, Image(s) reviewed by me Assessment/Plan Assessment/Plan Uncontrolled diabetes blood sugars in the range of 300 A1c 12.1: Insulin aggressive sliding scale Leukocytosis [id number] unknown etiology: Rocephin, chest x-ray negative urinalysis negative for infection CT abdomen pelvis without contrast negative Hypertension Moderate malnutrition Time spent 45 minutes Patient lives with his Margot who is at bedside Plan discussed with: Patient, Spouse Date of Service: May 01, 2025 Billing Provider: KATHY YUAN MD Common Visit Codes: [id number] INP/OBS CARE(HIGH) KATHY YUAN MD May 01, 2025 12:11
--- NOTE | 2025-05-01 12:15 | DVHDS2 ---
Discharge Summary Date of Admission Apr 27, 2025 at 21:23 Date of Discharge: May 01, 2025 Admitting Diagnosis Uncontrolled diabetes Wounds: None Labs/Diagnostic Data: Laboratory Results Test 05/01/25 11:12 04/30/25 06:20 04/27/25 21:10 04/27/25 19:50 POC Glucose 213 mg/dl (70-106) White Blood Count 6.8 10^3/uL (4.4-10.8) Red Blood Count 5.13 10^6/uL (4.5-5.90) Hemoglobin 15.5 g/dL (13.5-17.5) Hematocrit 42.5 % (41.0-53.0) Mean Corpuscular Volume 83.0 fL (80.0-100.0) Mean Corpuscular Hemoglobin 30.2 pg (28.0-32.0) Mean Corpuscular Hemoglobin Concent 36.4 g/dL (32.0-36.0) Red Cell Distribution Width 12.4 % (11.8-14.3) Platelet Count 166 10^3/uL (140-450) Mean Platelet Volume 10.1 fL (6.9-10.8) Neutrophils (%) (Auto) 67.7 % (37.0-80.0) Lymphocytes (%) (Auto) 19.7 % (10.0-50.0) Monocytes (%) (Auto) 10.0 % (0.0-12.0) Eosinophils (%) (Auto) 2.2 % (0.0-7.0) Basophils (%) (Auto) 0.4 % (0.0-2.0) Neutrophils # (Auto) 4.6 10 ^3/uL (1.6-8.6) Lymphocytes # (Auto) 1.4 10 ^3/uL (0.4-5.4) Monocytes # (Auto) 0.7 10 ^3/uL (0-1.3) Eosinophils # (Auto) 0.1 10 ^3/uL (0-0.8) Basophils # (Auto) 0 10 ^3/uL (0-0.2) Nucleated Red Blood Cells 0.2 % Sodium Level 136 mmol/L (136-145) Potassium Level 4.1 mmol/L (3.5-5.1) Chloride Level 101 mmol/L (98-107) Carbon Dioxide Level 27 mmol/L (20-31) Anion Gap 8 (5-15) Blood Urea Nitrogen 12 mg/dL (9-23) Creatinine 0.87 mg/dL (0.700-1.30) Glomerular Filtration Rate Calc 95 mL/min (>90) BUN/Creatinine Ratio 13.8 (10.0-20.0) Serum Glucose 165 mg/dL (74-106) Calcium Level 9.3 mg/dL (8.7-10.4) Total Bilirubin 0.8 mg/dL (0.2-1.0) Aspartate Amino Transferase (AST) 41 U/L (13-40) Alanine Aminotransferase (ALT) 18 U/L (7-40) Alkaline Phosphatase 85 U/L (46-116) Total Protein 7.3 g/dL (5.7-8.2) Albumin 4.0 g/dL (3.2-4.8) Troponin I High Sensitivity < 3 ng/L (</=54) Urine Color Light-yellow (Yellow) Urine Clarity Clear (Clear) Urine pH 7.0 (5.0-9.0) Urine Specific [place] 1.007 (1.001-1.035) Urine Protein Negative (Negative) Urine Ketones Trace (Negative) Urine Blood Negative /uL (Negative) Urine Nitrite Negative (Negative) Urine Bilirubin Negative (Negative) Urine Urobilinogen Normal mg/dL (Negative) Urine Leukocyte Esterase Negative /uL (Negative) Urine RBC None seen /hpf (0 - 3) Urine Microscopic WBC /HPF (0-3) Urine Squamous Epithelial Cells None seen /hpf (<5) Urine Bacteria None seen /hpf (None Seen) Urine Glucose 2+ mg/dL (Normal) Test 04/27/25 17:08 04/27/25 17:05 Hemoglobin A1c 12.1 % A1C (<5.7) Differential Total Cells Counted 100.0 (100) Neutrophils % (Manual) 91 (37.0-80.0) Band Neutrophils % (Manual) 0 Lymphocytes % (Manual) 6 (10.0-50.0) Monocytes % (Manual) 3 (0-12) Eosinophils % (Manual) 0 (0-7) Basophils % (Manual) 0 (0.0-2.0) Metamyelocytes % (manual) 0 Myelocytes % (Manual) 0 Promyelocytes % (Manual) 0 Blast Cells % (Manual) 0 Reactive Lymphocytes 0 Platelet Estimate Adequate Other Laboratory Tests 04/30/25 06:20 Brief Hx & Hospital Course: 65-year-old male with a history of diabetes hypertension came in for generalized weakness and high blood sugars blood sugars range of 300 A1c 12.1 uncontrolled diabetes treated with the insulin aggressive sliding scale WBC elevated [id number] unknown etiology blood cultures negative urine cultures negative CT abdomen pelvis without contrast negative started on Rocephin chest x-ray is also negative white count came back to normal. at the bedside patient feels better and being discharged home. Prescription for Lantus insulin metformin and Keppra transmitted to the pharmacy. He will follow up with his primary Dr in one week Consults/Reason for consult None Operations or Procedures CT abdomen pelvis without contrast Condition at Discharge: Fair Final Diagnosis/Problems List Uncontrolled diabetes blood sugars in the range of 300 A1c 12.1: Insulin aggressive sliding scale Leukocytosis [id number] unknown etiology: Rocephin, chest x-ray negative urinalysis negative for infection CT abdomen pelvis without contrast negative Hypertension Moderate malnutrition Discharge Disposition: Home Discharge Instruct/Medications Diet: Consistent carbohydrate Activity: Light activity Follow Up/Referral: Check your blood sugars 3 times a day and take medications as prescribed Follow up with the primary Dr in one week Medications: Lantus Metformin Keflex [facility]uled Benazepril Hcl (Benazepril Hcl), 10 MG PO DAILY, (Reported) Cephalexin Monohydrate (Cephalexin), 1 CAP PO QID Cyclobenzaprine Hcl (Cyclobenzaprine Hcl), 10 MG PO TID, (Reported) Fluticasone Furoate-Vilanterol (Breo Ellipta 50-25 Mcg/INH), 1 INH IN DAILY, (Reported) Lovastatin (Lovastatin), 20 MG PO HS, (Reported) Metformin HCl (Metformin Hydrochloride), 1,000 MG PO BID Metformin Hydrochloride (Metformin Hcl), 1,000 MG PO BID, (Reported) Omeprazole Magnesium (Omeprazole), 20 MG PO DAILY, (Reported) Pioglitazone Hydrochloride (Actos Tablet), 15 MG PO TID, (Reported) Miscellaneous Medications Insulin NPH Isophane & Reg (Hu (Humulin 70/30 Kwikpen (70-30) 100 Unit/ml), 1 INJ SC, (Reported) 39 (Time taken for discharge summary 39 minutes) Discharge Statement: "Patient was advised to return to the ER or call 911 if any headaches, dizziness, shortness of breath, chest pain, abdominal pain, bleeding, fevers, or worsening of medical condition. Patient was counseled about treatment plan, medications, possible side effects, patientverbalized understanding. All questions were answered to the best of my ability. This discharge took greater then 30 minutes in planning, reviewing documentation, counseling the patient, and discussing with other team members." ASSESSMENT ASSESSMENT Hospital Course Uneventful Assessment Uncontrolled diabetes blood sugars in the range of 300 A1c 12.1: Insulin aggressive sliding scale Leukocytosis [id number] unknown etiology: Rocephin, chest x-ray negative urinalysis negative for infection CT abdomen pelvis without contrast negative Hypertension Moderate malnutrition Date of Service: May 01, 2025 Billing Provider: KATHY YUAN MD Common Visit Codes: [id number] DISCH DAY >30min KATHY YUAN MD May 01, 2025 12:15
[2025-05-01 14:02] VITALS: BP 136/77; TEMP 36.8
== END 2025-05-01 14:37 | disposition home or self-care (01) | DRG 638 ==
LOC: ER 15:13 → OVERFLOW 21:23 → WEST WING 23:38
PROVIDERS: ADMIT Family Medicine; ATTEND Family Medicine
DX: E11.65 Type 2 diabetes mellitus with hyperglycemia (principal); E44.0 Moderate protein-calorie malnutrition; D72.829 Elevated white blood cell count, unspecified; I10 Essential (primary) hypertension; E78.00 Pure hypercholesterolemia, unspecified; E11.42 Type 2 diabetes mellitus with diabetic polyneuropathy; Z87.891 Personal history of nicotine dependence; Z89.429 Acquired absence of other toe(s), unspecified side; Z91.148 Patient's other noncompliance with medication regimen for other reason; Z87.442 Personal history of urinary calculi; Z68.30 Body mass index [BMI] 30.0-30.9, adult
CPT/HCPCS: 36415; 71045; 74176; 80048; 80053; 81001; 82962; 83036; 84484; 85007; 85025; 85027; 87040; 93005; 96361; 96365; 96375; G0378; J1815; J2405